=== PATIENT | female | born 1940 | race Caucasian/White ===

== ENCOUNTER 2017-04-04 09:25 | Emergency (ER) | payer OTHER ==
[~2017-04-04] VITALS: Ht 152.4 cm; Wt 62.8 kg
[2017-04-04 10:41] VITALS: BP 156/89
== END 2017-04-04 10:41 | disposition home or self-care (01) ==
LOC: ED 09:25
DX: M25.561 Pain in right knee (principal); M17.0 Bilateral primary osteoarthritis of knee; I10 Essential (primary) hypertension; Z79.899 Other long term (current) drug therapy; Z88.1 Allergy status to other antibiotic agents; Z98.890 Other specified postprocedural states
CPT/HCPCS: J1885; Q0092

== ENCOUNTER 2017-09-15 16:32 | Emergency (ER) | payer OTHER ==
[~2017-09-15] VITALS: Ht 162.6 cm; Wt 60.8 kg
[2017-09-15 16:53] VITALS: Ht 162.6 cm; Wt 60.8 kg
[2017-09-15 19:35] LABS: BASOPHIL % 0.1 % (0-2); PLATELET COUNT 249 x10^3mcL (130-400); RED CELL DISTRIBUTION WIDTH 13.3 % (11.5-14.5)
[2017-09-15 19:46] LABS: CALCIUM 8.5 mg/dL (8.5-10.1); CARBON DIOXIDE 29.4 mmol/L (21-32); CHLORIDE SERUM 98 mmol/L (98-107); CREATININE SERUM 1.1 mg/dL (0.6-1.0); GLUCOSE SERUM 100 mg/dL (74-106); POTASSIUM SERUM 3.5 mmol/L (3.5-5.1); SODIUM SERUM 135 mmol/L (136-145)
[2017-09-15 19:51] LABS: ALBUMIN 3.5 g/dL (3.4-5.0); ALKALINE PHOSPHATASE 74 U/L (46-116); ALT/SGPT 27 U/L (14-59); AST/SGOT 21 U/L (15-37); BILIRUBIN TOTAL 0.7 mg/dL (0.20-1.00); TOTAL PROTEIN, SERUM 7.9 g/dL (6.4-8.2)
[2017-09-15 21:26] VITALS: BP 132/60
== END 2017-09-15 21:26 | disposition home or self-care (01) ==
LOC: ED 16:32
PROVIDERS: Emergency Medicine
DX: K52.9 Noninfective gastroenteritis and colitis, unspecified (principal); R79.89 Other specified abnormal findings of blood chemistry; I10 Essential (primary) hypertension; M19.90 Unspecified osteoarthritis, unspecified site; Z88.1 Allergy status to other antibiotic agents
CPT/HCPCS: J1885; J2405; J7030

== ENCOUNTER 2018-05-24 09:47 | Emergency (ER) | payer OTHER ==
[~2018-05-24] VITALS: Ht 152.4 cm; Wt 60.3 kg
[2018-05-24 09:53] VITALS: Ht 152.4 cm; Wt 60.3 kg
[2018-05-24 12:31] VITALS: BP 167/78
== END 2018-05-24 12:31 | disposition home or self-care (01) ==
LOC: ED 09:47
DX: S13.4XXA Sprain of ligaments of cervical spine, initial encounter (principal); G44.309 Post-traumatic headache, unspecified, not intractable; I10 Essential (primary) hypertension; M19.90 Unspecified osteoarthritis, unspecified site; G62.9 Polyneuropathy, unspecified; Z88.1 Allergy status to other antibiotic agents; Z88.2 Allergy status to sulfonamides; V49.40XA Driver injured in collision with unspecified motor vehicles in traffic accident, initial encounter; Y93.I9 Activity, other involving external motion; Y92.488 Other paved roadways as the place of occurrence of the external cause; Y99.8 Other external cause status
CPT/HCPCS: J1885

== ENCOUNTER 2018-09-27 12:18 | Emergency (ER) | payer OTHER ==
[~2018-09-27] VITALS: Ht 152.4 cm; Wt 60.8 kg
[2018-09-27 12:34] VITALS: Ht 152.4 cm; Wt 60.8 kg
[2018-09-27 14:07] LABS: BASOPHIL % 0.9 % (0-2); PLATELET COUNT 283 x10^3mcL (130-400)
[2018-09-27 14:15] LABS: CALCIUM 8.8 mg/dL (8.5-10.1); CARBON DIOXIDE 28.8 mmol/L (21-32); CHLORIDE SERUM 98 mmol/L (98-107); CREATININE SERUM 0.8 mg/dL (0.6-1.0); GLUCOSE SERUM 81 mg/dL (74-106); POTASSIUM SERUM 3.6 mmol/L (3.5-5.1); SODIUM SERUM 136 mmol/L (136-145)
[2018-09-27 14:20] LABS: ALBUMIN 3.6 g/dL (3.4-5.0); ALKALINE PHOSPHATASE 112 U/L (46-116); ALT/SGPT 38 U/L (14-59); AST/SGOT 23 U/L (15-37); BILIRUBIN TOTAL 0.4 mg/dL (0.20-1.00); CHOLESTEROL 161 mg/dL (<200); HDL CHOLESTEROL 70 mg/dL (40-60); MAGNESIUM 2.1 mg/dL (1.8-2.4); PHOSPHOROUS 4.1 mg/dL (2.5-4.9); TOTAL PROTEIN, SERUM 8.2 g/dL (6.4-8.2)
[2018-09-27 14:28] LABS: microscopic required? YES; urine erythrocyte NEGATIVE (NEGATIVE)
[2018-09-27 15:38] VITALS: BP 150/66
== END 2018-09-27 15:38 | disposition home or self-care (01) ==
LOC: ED 12:18
PROVIDERS: Emergency Medicine
DX: N39.0 Urinary tract infection, site not specified (principal); M25.572 Pain in left ankle and joints of left foot; M25.571 Pain in right ankle and joints of right foot; M19.90 Unspecified osteoarthritis, unspecified site; I10 Essential (primary) hypertension; Z88.1 Allergy status to other antibiotic agents; Z88.2 Allergy status to sulfonamides
CPT/HCPCS: J2405; J3010; Q0092